=== PATIENT | male | born 1990 | race Caucasian/White ===

== ENCOUNTER → 2021-08-12 | Outpatient (REF) | payer BC | LOC: M LAB REF 15:53 | PROVIDERS: ATTEND Physician Assistant | DX: Z30.2 Encounter for sterilization (principal) ==

== ENCOUNTER → 2021-12-02 | Outpatient (REF) | payer BC ==
[2021-12-02 14:58] LABS: SEMEN APPEARANCE OPAQUE (OPAQUE)
[2021-12-02 14:59] LABS: SEMEN VISCOSITY LIQUID (LIQUID); SEMEN VOLUME 4.2 ml (2.0-5.0); WBC CONCENTRATION >1 M/ml (<=1 M/ml)
== END ==
LOC: M LAB REF 14:39
PROVIDERS: ATTEND Physician Assistant
DX: Z30.2 Encounter for sterilization (principal)

== ENCOUNTER → 2023-03-06 | Outpatient (REF) | payer OTHER ==
[2023-03-06 19:43] LABS: RSV AMPLIFICATION NEGATIVE (NEGATIVE)
== END ==
LOC: M LAB REF 17:34
PROVIDERS: ATTEND Physician Assistant
DX: J06.9 Acute upper respiratory infection, unspecified (principal)

== ENCOUNTER → 2023-10-03 | Outpatient (CLI) | payer OTHER ==
[~2023-10-03] MED LIST: AMOX875T2 PO; CEPH500T PO; IBUP-1114 PO; PROB250C PO
== END ==
LOC: M WUC 08:50
PROVIDERS: ATTEND Nurse Practitioner Family
DX: M25.512 Pain in left shoulder (principal)

== ENCOUNTER → 2023-11-30 | Outpatient (REF) | payer OTHER ==
[~2023-11-30] MED LIST changes: +ACET32TAB PO; +AZIT-12 PO; +BENZ200C70 PO; +CEFD300CAP PO; +ONDA-282 PO
== END ==
LOC: M LAB REF 20:52
PROVIDERS: ATTEND Physician Assistant
DX: B34.9 Viral infection, unspecified (principal)

== ENCOUNTER 2023-12-02 13:38 | Emergency (ER) | payer OTHER ==
[~2023-12-02] VITALS: Ht 190.5 cm; Wt 139.7 kg
[~2023-12-02 13:38] MED LIST changes: -ACET32TAB PO; -AZIT-12 PO; -BENZ200C70 PO; -CEFD300CAP PO; -ONDA-282 PO
[2023-12-02] MEDS ORDERED: ACET32TAB PO (13:46)
[2023-12-02] MEDS: ONDANSETRON 4MG 2ML VIAL IV ONE (14:17)
[2023-12-02] MEDS: KETOROLAC 30 MG/ML 1ML VIAL IV ONE (14:17)
[2023-12-02] MEDS: NS 1,000 ML IV ONE (14:17)
[2023-12-02 14:31] LABS: BASO % 0.5 % (0.0-1.0); EOS # 0.1 10^3/uL (0.0-0.5); HEMATOCRIT 38.3 % (42.0-52.0); HEMOGLOBIN 13.4 g/dl (13.5-17.5); LYMPH # 0.8 10^3/uL (1.5-5.0); LYMPH % 12.4 % (24.0-44.0); MEAN CORPUSCULAR VOLUME 82.9 fl (80.0-96.0); MONO # 0.5 10^3/uL (0.0-0.8); MONO % 8.1 % (2.0-8.0); NEUTROPHILS # 4.9 10^3/uL (1.5-8.5); NEUTROPHILS % 77.7 % (36.0-66.0); PLATELET COUNT, AUTOMATED 254 10^3/uL (150-450); RED BLOOD COUNT 4.62 10^6/uL (4.30-6.10); WHITE BLOOD COUNT 6.3 10^3/uL (4.0-10.0)
[2023-12-02 15:02] LABS: ALBUMIN 3.1 G/DL (3.2-5.2); BILIRUBIN,DIRECT 0.2 MG/DL (<0.4); BILIRUBIN,TOTAL 0.5 MG/DL (0.3-1.2); TOTAL PROTEIN 6.8 G/DL (5.7-8.2)
[2023-12-02] MEDS: AZITHROMYCIN 250MG TABLET PO ONE (15:15)
[2023-12-02] MEDS: cefTRIAXone SOD 2 GM in D5W MINI-BAG PLUS 50 ML IV ONE (15:15)
[2023-12-02] MEDS ORDERED: ONDA-282 PO (15:51)
[2023-12-02] MEDS ORDERED: AZIT-12 PO (15:51)
[2023-12-02] MEDS ORDERED: CEFD300CAP PO (15:51)
[2023-12-02] MEDS ORDERED: BENZ200C70 PO (15:54)
[2023-12-02 16:14] VITALS: BP 153/83; TEMP 100.5; O2SAT 98
== END 2023-12-02 16:17 | disposition home or self-care (01) ==
LOC: M ED 13:38
DX: J18.9 Pneumonia, unspecified organism (principal); Z79.2 Long term (current) use of antibiotics; Z79.1 Long term (current) use of non-steroidal anti-inflammatories (NSAID); Z79.83 Long term (current) use of bisphosphonates; Z79.899 Other long term (current) drug therapy
CPT/HCPCS: 71046; 80047; 80076; 83605; 83690; 85025; 87040; 87486; 87581; 87633; 87798; 96361; 96365; 96375; 99284; J0696; J1885; J2405

== ENCOUNTER → 2024-04-26 | Outpatient (CLI) | payer OTHER ==
[~2024-04-26] MED LIST changes: +ACET32TAB PO; +AZIT-12 PO; +BENZ200C70 PO; +CEFD300CAP PO; +ONDA-282 PO
== END ==
LOC: M PLAIMG 12:45
PROVIDERS: ATTEND Physician Assistant
DX: M89.222 Other disorders of bone development and growth, left humerus (principal)